=== PATIENT | male | born 1980 | race Caucasian/White ===

== ENCOUNTER 2016-12-23 12:03 | Emergency (ER) | payer MEDICAID ==
[~2016-12-23] VITALS: Ht 175.3 cm; Wt 66.0 kg
[2016-12-23 12:07] VITALS: BP 130/89
== END 2016-12-23 12:47 | disposition home or self-care (01) ==
LOC: ED 12:35
DX: K08.89 Other specified disorders of teeth and supporting structures (principal)
CPT/HCPCS: 99283

== ENCOUNTER 2017-01-30 14:11 | Emergency (ER) | payer MEDICAID ==
[~2017-01-30] VITALS: Ht 175.3 cm; Wt 58.0 kg
[2017-01-30 14:12] VITALS: BP 112/74
[2017-01-30] MEDS ORDERED: ONDANSETRON 2MG/ML, 2ML IVPush ONE (14:30)
[2017-01-30] MEDS ORDERED: SODIUM CHLORIDE 0.9% 1,000ML IVBOLUS ONE (14:30)
[2017-01-30 14:48] LABS: HEMATOCRIT 44.1 % (39.2-51.8); WHITE BLOOD COUNT 3.6 x10^3/uL (3.4-10)
[2017-01-30 15:00] LABS: BLOOD UREA NITROGEN 21 mg/dL (7-18)
[2017-01-30 15:08] LABS: ASPARTATE AMINO TRANSFERASE 90 U/L (15-37)
[2017-01-31] MEDS ORDERED: DIAZ5TAB PO (08:29)
[2017-01-31] MEDS ORDERED: SULF1TAB24 PO (08:29)
== END 2017-01-30 18:00 | disposition left against medical advice (07) ==
LOC: ED 17:54
DX: R10.9 Unspecified abdominal pain (principal); R11.2 Nausea with vomiting, unspecified; R19.7 Diarrhea, unspecified
CPT/HCPCS: 36415; 80053; 85025; 99284

== ENCOUNTER 2017-01-31 07:27 | Inpatient (IN) | payer MEDICAID ==
[~2017-01-31] VITALS: Ht 175.3 cm; Wt 62.0 kg
[2017-01-31] MEDS ORDERED: FAMOTIDINE 20 MG/2 ML ONE (07:55)
[2017-01-31] MEDS ORDERED: ONDANSETRON 2MG/ML, 2ML ONE (07:55)
[2017-01-31] MEDS ORDERED: ONDANSETRON 2MG/ML, 2ML IVPush ONE (08:00)
[2017-01-31] MEDS ORDERED: SODIUM CHLORIDE FLUSH 10ML SYR IVF ONE (08:00)
[2017-01-31] MEDS ORDERED: SODIUM CHLORIDE 0.9% 1,000ML IVBOLUS ONE (08:00)
[2017-01-31] MEDS ORDERED: FAMOTIDINE 20 MG/2 ML IVP ONE (08:00)
[2017-01-31] MEDS ORDERED: DIAZ5TAB PO (08:29)
[2017-01-31] MEDS ORDERED: SULF1TAB24 PO (08:29)
[2017-01-31 08:48] LABS: HEMOGLOBIN 13.2 g/dL (13.7-18.0); WHITE BLOOD COUNT 2.8 x10^3/uL (3.4-10)
[2017-01-31 08:52] LABS: ASPARTATE AMINO TRANSFERASE 125 U/L (15-37); BLOOD UREA NITROGEN 27 mg/dL (7-18)
[2017-01-31 09:08] LABS: DIFF TOTAL CELLS COUNTED 100 CELL DIFF
[2017-01-31 09:09] LABS: VERIFY COUNTS? YES
[2017-01-31] MEDS ORDERED: SODIUM CHLORIDE 0.9% 1,000 ML IV ONE (09:18)
[2017-01-31] MEDS ORDERED: POTASSIUM CHLORIDE 40 MEQ in SODIUM CHLORIDE 0.9% 500 ML IV ONE (10:00)
[2017-01-31] MEDS ORDERED: LABETALOL 5MG/ML, 20ML IVPush PRN (10:30)
[2017-01-31] MEDS ORDERED: ACETAMINOPHEN 325 MG TABLET PO PRN (10:30)
[2017-01-31] MEDS: PANTOPRAZOLE 40 MG IV IVPush SCH (10:30)
[2017-01-31] MEDS ORDERED: ONDANSETRON 2MG/ML, 2ML IVPush PRN (10:30)
[2017-01-31] MEDS ORDERED: TEMAZEPAM 15 MG CAPSULE PO PRN (10:30)
[2017-01-31] MEDS ORDERED: ONDANSETRON ODT 4 MG PO PRN (10:30)
[2017-01-31 12:50] VITALS: BP 109/53
[2017-01-31] MEDS: LORazepam 1MG TABLET PO PRN (13:18)
[2017-01-31] MEDS: NS + 20MEQ KCL 1,000 ML IV SCH ×2 (15:15→16:01)
[2017-01-31 20:10] VITALS: BP 112/71
[2017-01-31] MEDS: morphine SULFATE 10 MG/ML, 1ML IVPush PRN (20:15)
[2017-01-31] MEDS ORDERED: NS + 20MEQ KCL 1,000 ML IV ONE (21:30)
[2017-02-01 01:19] VITALS: BP 119/74
[2017-02-01 05:13] LABS: HEMATOCRIT 31.9 % (39.2-51.8); WHITE BLOOD COUNT 2.9 x10^3/uL (3.4-10)
[2017-02-01 05:21] LABS: ASPARTATE AMINO TRANSFERASE 112 U/L (15-37); BLOOD UREA NITROGEN 11 mg/dL (7-18)
[2017-02-01 07:06] VITALS: BP 110/73
[2017-02-01] MEDS: PANTOPRAZOLE 40 MG IV IVPush SCH (07:35)
[2017-02-01] MEDS: LORazepam 1MG TABLET PO PRN (08:29)
[2017-02-01] MEDS ORDERED: MAGNESIUM SULFATE PMX 2GM/50ML 50 ML IV ONE (09:00)
[2017-02-01] MEDS ORDERED: POTASSIUM PHOS 4.4 MEQ/ML IV SCH (09:00)
[2017-02-01] MEDS ORDERED: POTASSIUM PHOSPHATE 44 MEQ in SODIUM CHLORIDE 0.9% 500 ML IV ONE (09:30)
[2017-02-01 11:03] LABS: HIV 1&2 ANTIBODY SCREEN Nonreactive (Nonreactive); HIV-1 p24 ANTIGEN Nonreactive (Nonreactive)
[2017-02-01 13:57] VITALS: BP 105/70
[2017-02-01] MEDS: morphine SULFATE 10 MG/ML, 1ML IVPush PRN ×2 (15:29→20:31)
[2017-02-01 18:50] VITALS: BP 121/74
[2017-02-02 00:55] VITALS: BP 112/72
[2017-02-02 06:37] LABS: HEMATOCRIT 36.2 % (39.2-51.8); HEMOGLOBIN 12.6 g/dL (13.7-18.0); WHITE BLOOD COUNT 3.2 x10^3/uL (3.4-10)
[2017-02-02 06:45] LABS: ASPARTATE AMINO TRANSFERASE 90 U/L (15-37); BLOOD UREA NITROGEN 8 mg/dL (7-18)
[2017-02-02 07:21] VITALS: BP 116/88
[2017-02-02] MEDS: PANTOPRAZOLE 40 MG IV IVPush SCH (07:30)
[2017-02-02 12:27] VITALS: BP 130/80
[2017-02-02] MEDS ORDERED: POTASSIUM CHLORIDE 20 MEQ TAB.ER.PRT PO ONE (13:30)
[2017-02-02 14:17] VITALS: BP 114/69
== END 2017-02-02 14:50 | disposition home or self-care (01) | DRG 872 ==
LOC: ED 07:54 → EDIP 09:39 → 4NOR 11:19 → DCLOUNGE 02-02 14:29
PROVIDERS: ADMIT Internal Medicine; ATTEND Internal Medicine
DX: A41.9 Sepsis, unspecified organism (principal); N17.9 Acute kidney failure, unspecified; B17.9 Acute viral hepatitis, unspecified; E87.1 Hypo-osmolality and hyponatremia; E87.6 Hypokalemia; F12.90 Cannabis use, unspecified, uncomplicated; K64.9 Unspecified hemorrhoids; E86.0 Dehydration; L55.1 Sunburn of second degree; K52.9 Noninfective gastroenteritis and colitis, unspecified; L27.0 Generalized skin eruption due to drugs and medicaments taken internally; T37.0X5A Adverse effect of sulfonamides, initial encounter; D72.819 Decreased white blood cell count, unspecified; F41.9 Anxiety disorder, unspecified; G47.00 Insomnia, unspecified; T36.95XA Adverse effect of unspecified systemic antibiotic, initial encounter; Z98.49 Cataract extraction status, unspecified eye; Z88.2 Allergy status to sulfonamides; Y92.89 Other specified places as the place of occurrence of the external cause
CPT/HCPCS: 36415; 74176; 80053; 81001; 83605; 83690; 83735; 84100; 84145; 85025; 86703; 86704; 86706; 86708; 86803; 87040; 87046; 87086; 87252; 87324; 87340; 87899; 89055; 93005; 96361; 96374; 96375; J2405; J3480; C9113; G0435; J2270; J3475; J7030; J7040; S0028